=== PATIENT | female | born 1980 | race Caucasian/White ===

== ENCOUNTER 2021-01-21 16:34 | Emergency (ER) | payer OTHER ==
[~2021-01-21] VITALS: Ht 162.6 cm; Wt 66.7 kg
[2021-01-21] MEDS ORDERED: ACETAZOLAMIDE125 MG PO (16:48)
[2021-01-21] MEDS ORDERED: PROTONIX40 M2 PO (16:49)
[2021-01-21] MEDS ORDERED: TRAZODONE HCL100 MG PO (16:49)
[2021-01-21] MEDS ORDERED: DULOXETINE HCL20 MG PO (16:49)
[2021-01-21] MEDS ORDERED: HYDROCODON-ACE1 EAC7 PO (16:49)
[2021-01-21] MEDS ORDERED: [UNRECOGNIZED DRUG - OTHER] (16:49)
[2021-01-21 17:00] LABS: ABSOLUTE BASOPHILS 0.1 thou/uL (0.0-0.2); ABSOLUTE EOSINOPHILS 0.1 thou/uL (0.0-0.7); ABSOLUTE LYMPHOCYTES 2.5 thou/uL (0.8-5.3); ABSOLUTE MONOCYTES 0.3 thou/uL (0.0-1.2); ABSOLUTE NEUTROPHILS 4.2 thou/uL (1.6-8.1); BASOPHILS 0.7 %; EOSINOPHILS 1.9 %; HEMATOCRIT 46.1 % (37.0-47.0); HEMOGLOBIN 15.2 gm/dL (12.0-15.0); LYMPHOCYTES 34.8 %; MCH 29.1 pg (26.0-34.0); MCV 88.4 fL (80.0-100.0); MONOCYTES 4.8 %; MPV 7.9 fl. (7.2-11.1); NUCLEATED RBCS 0 /100WBC; PLATELET COUNT* 329 thou/uL (150-400); POLYS 57.8 %; RBC 5.22 mil/uL (4.20-5.00); WBC 7.3 thou/uL (4.0-11.0)
[2021-01-21 17:05] LABS: CALCIUM 8.8 mg/dL (8.5-10.1); CREATININE 1.1 mg/dL (0.6-1.3); POTASSIUM 3.1 mmol/L (3.5-5.1)
[2021-01-21 17:09] LABS: APTT 27.5 Seconds (25.0-31.3); INR 0.9; PROTIME 10.1 Seconds (9.20-11.50)
[2021-01-21 17:10] LABS: ALBUMIN 4.1 g/dL (3.4-5.0); TOTAL BILIRUBIN 0.3 mg/dL (<0.1-1.0); TOTAL PROTEIN 7.5 g/dL (6.4-8.2)
[2021-01-21 17:42] VITALS: BP 132/98
--- NOTE | 2021-01-24 10:35 | EKG ---
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 : 1980 Requested By: Christofer Lai Order Number: [id number] MD: Luisito Morgan Measurements Intervals [place] Rate: 80 P: 74 WI: 176 QRS: 56 QRSD: 100 T: 70 QT: 381 QTc: 440 Interpretive Statements Sinus rhythm RSR' in V1 or V2, probably normal variant No previous ECG available for comparison Electronically Signed On 01-24-2021 10:35:38 CDT by Luisito Morgan [email or web address] <ELECTRONICALLY SIGNED> By: Luisito Morgan MD, [facility] 01/24/21 1035 1723 1723 Luisito Morgan MD, [facility] /EPI
== END 2021-01-21 17:44 | disposition home or self-care (01) ==
LOC: M.ERS 16:34
PROVIDERS: Family Medicine
DX: R29.90 Unspecified symptoms and signs involving the nervous system (principal); Z88.5 Allergy status to narcotic agent